=== PATIENT | female | born 1975 | race Caucasian/White ===

== ENCOUNTER 2023-12-09 08:12 | Day surgery (SDC) | payer BC, SELFPAY ==
[2023-12-09 08:28] VITALS: BP 127/105; PULSE 80; RESP 18; TEMP 36.2; O2SAT 99
--- NOTE | 2023-12-09 08:29 | ANES.PREANE2 ---
Pre-Anesthetic Assessment Height/Weight: Height 1.75 m Weight 79.832 kg Temp Pulse Resp BP Pulse Ox O2 Del Method 97.2 F L 80 18 127/105 99 Room Air 12/09/23 08:28 12/09/23 08:28 12/09/23 08:28 12/09/23 08:28 12/09/23 08:28 12/09/23 08:28 Operation Date: 12/09/23 09:30 Proposed Procedures p [id number] egd [id number] colonoscopy G0121 screen colon a risk K21.9,Z12.11(Not Applicable) - Roel Goodson DO s Colonoscopy(Not Applicable) - Roel Goodson DO Familial anesthetic complications: None Was Beta Lobo taken within 24 hours: N/A Was Clonidine taken within 24 hours: N/A Last intake: Intake Last Liquid Date 12/08/23 Last Liquid Time 20:00 Last Solid Date 12/07/23 Last Solid Time 18:00 Social No alcohol and No tobacco Exam alert, oriented x 3, clear to auscultation bilaterally and regular rate & rhythm Airway Mallampati: Class I Dentition: other (3 missing) GI Gastroesophageal Reflux Disease Anesthetic Plan ASA status: 2 Anesthesia: MAC Risk of > 500 ml blood loss (7ml/kg in children): No Medications/Allergies Home Medications Medication Instructions Recorded Confirmed Last Taken Type pantoprazole 40 mg tablet,delayed 40 mg PO BID 30 days #60 tabs 11/13/23 12/07/23 12/07/23 Rx release (Protonix) sucralfate 1 gram tablet 1 g PO TID PRN Abdominal Pain 11/13/23 12/07/23 12/07/23 History Allergies Allergy/AdvReac Type Severity Reaction Status Date / Time hydrocodone Allergy Mild ADR-Abdominal Verified 12/07/23 12:30 Pain PFSH Anesthesia Surgical History (Updated 11/13/23 @ 10:14 by Roel Goodson DO) Hx of knee surgery x5 right knee History of lumpectomy of right breast Hx of hysterectomy Family History Mother Cancer lung Father COPD (chronic obstructive pulmonary disease) Social History Smoking and tobacco/nicotine status: former use of tobacco/nicotine Data Anesthesia Cardiac Studies: No Data to Display
[2023-12-09] MEDS: sodium chloride 0.9% 1,000 ML 30 ML IV (08:36)
--- NOTE | 2023-12-09 09:12 | W.PM.OPSUD ---
Surgery/Procedure H&P Update DATE OF PROCEDURE: December 09, 2023 DATE H&P PERFORMED: 11/13/23 H&P UPDATE INFORMATION: I have reviewed H&P completed within last 30 days, I have examined patient prior to procedure and No changes to prior documentation PLANNED PROCEDURE: Operation Date: 12/09/23 09:30 Proposed Procedures p [id number] egd [id number] colonoscopy G0121 screen colon a risk K21.9,Z12.11(Not Applicable) - DO jose manuel Mcmanus Colonoscopy(Not Applicable) - Roel Goodson DO
[2023-12-09 09:40] VITALS: BP 110/81; PULSE 73; RESP 18; TEMP 36.8; O2SAT 98
[2023-12-09 09:54] VITALS: BP 133/98; PULSE 76; RESP 18; O2SAT 97
--- NOTE | 2023-12-09 10:10 | ANE.PACU2 ---
Inpatient post-anesthesia follow up: Airway intact: Yes Vital signs: Temperature 98.3 F Pulse Rate 76 Respiratory Rate 18 Blood Pressure 133/98 Pulse Oximetry 97 Oxygen Delivery Me thod Room Air Oxygen Flow Rate Fraction of Inspir ed Oxygen Hydration adequate: Yes Nausea and vomiting: No Pain level: 1 Mental status: Baseline
== END 2023-12-09 10:10 | disposition home or self-care (01) ==
PROVIDERS: PCP Nurse Practitioner Family; Visit Provider Surgery
PROC: 0DJ08ZZ Inspection of Upper Intestinal Tract, Via Natural or Artificial Opening Endoscopic (ICD-10-PCS; CPT 43235; principal; 2023-12-09 09:30)
PROC: 0DJD8ZZ Inspection of Lower Intestinal Tract, Via Natural or Artificial Opening Endoscopic (ICD-10-PCS; CPT 45378; 2023-12-09 09:30)
DX: Z12.11 Encounter for screening for malignant neoplasm of colon (principal); K21.9 Gastro-esophageal reflux disease without esophagitis; K57.30 Diverticulosis of large intestine without perforation or abscess without bleeding; Z87.891 Personal history of nicotine dependence
CPT/HCPCS: 43239; 45378; 88305; J2704; J7030

== ENCOUNTER 2023-12-18 07:27 | Outpatient (CLI) | payer BC, SELFPAY ==
--- NOTE | 2023-12-18 08:00 | NM_ITS ---
WS: [id number] NUCLEAR MEDICINE HIDA SCAN CLINICAL INFORMATION: RUQ pain TECHNIQUE: Following intravenous administration of 7.5 mCi of technetium 99m mebrofenin, images of th e abdomen were obtained over the course of 60 minutes. Next, gallbladder ejection fraction was determ ined by obtaining preprandial and one-hour postprandial images of the gallbladder following oral marvel stion of Ensure. COMPARISON: None. FINDINGS: Normal hepatic uptake at 5 minutes. Gallbladder is visualized by 20 minutes. No evidence of acute cho lecystitis. Normal common bile duct and small bowel activity. Normal hepatic excretion. Gallbladder ejection fraction 77% within normal limits. No evidence of chronic cholecystitis. IMPRESSION: 1. No evidence of acute or chronic cholecystitis. 2. Normal gallbladder ejection fraction 77%.
== END 2023-12-18 07:28 | disposition home or self-care (01) ==
PROVIDERS: PCP Nurse Practitioner Family; Visit Provider Surgery
DX: R10.11 Right upper quadrant pain (principal)
CPT/HCPCS: 78227; A9537

== ENCOUNTER → 2024-01-19 12:07 | Outpatient (BNVA) | payer BC, SELFPAY | PROVIDERS: PCP Nurse Practitioner Family; Referring Provider Nurse Practitioner Family; Visit Provider Internal Medicine Cardiovascular Disease | DX: R55 Syncope and collapse (principal); R07.9 Chest pain, unspecified; R01.1 Cardiac murmur, unspecified; R00.2 Palpitations | CPT/HCPCS: 93005 ==

== ENCOUNTER 2024-02-01 12:57 | Outpatient (CLI) | payer BC, SELFPAY ==
[2024-02-01 13:00] VITALS: BMI 25.1
--- NOTE | 2024-02-01 13:03 | ECG_ITS ---
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 Interpretive Statements NAME OF STUDY: TREADMILL STRESS TEST INDICATION: Chest Pain, PROCEDURE: At the baseline, the patient's blood pressure was 126/86 with a heart rate of 69. The baseline electrocardiogram showed normal sinus rhythm with some nonspecific ST changes in the inferolateral leads. The patient exercised for 8 minutes and 53 seconds on a standard Carlos protocol. Patient attained a maximum heart rate of 167 beats per minute(98% of the maximum predicted heart rate) with a blood pressure at the peak exercise of 187/95 mm Hg. The EKG at the peak exercise revealed no significant changes.. Patient did not have any chest pain or any significant cardiac arrhythmias with the exercise During the recovery phase, the EKG showed more prominent nonspecific ST changes in the inferolateral leads Blood pressure at the end of the recovery phase was 131/90 mm Hg with a heart rate of 88 per minute. CONCLUSION: 1. Nonspecific EKG changes with the treadmill exercise 2. No exercise-induced chest pain or cardiac arrhythmia 3. Fair exercise tolerance, attained a maximum of 10.2 METs Electronically Signed On 02-06-2024 12:23:03 CDT by Alex Roldan M.D. [email or web address]
--- NOTE | 2024-02-01 13:45 | USCV_ITS ---
Giulia Berman Age: 48 Gender: F : 1975 Exam Date: 02/01/2024 13:09 Ordering Phys: Alex Roldan MD ([email or web address]) Technologist: Exam Location: [facility] – [place], [place] Indication: murmur BP: 130 / 78 HR: 84 Rhythm: Sinus Technical Quality: Adequate MEASUREMENTS (Male / Female) Normal Values 2D ECHO LV Diastolic Diameter PLAX 5.0 cm 4.2 - 5.9 / 3.9 - 5.3 cm IVS Diastolic Thickness 1.1 cm 0.6 - 1.0 / 0.6 - 0.9 cm IVS Systolic Thickness 1.5 cm LVPW Diastolic Thickness 0.9 cm 0.6 - 1.0 / 0.6 - 0.9 cm LVPW Systolic Thickness 1.7 cm LVOT Diameter 2.0 cm LV Ejection Fraction 2D Teich 62.2 % LV Ejection Fraction MOD 2C 75.1 % LV Ejection Fraction 2C AL 76.5 % LA Diameter 2.7 cm RA Systolic Volume 4C AL 36.2 ml RA Systolic Volume 4C MOD 34.9 ml LA Sys Volume AL 66.9 cm cubed LA Sys Volume Index AL 34.5 cm cubed/m squared IVC Diameter 1.6 cm M-MODE LA Ao Ratio MM 1.1 AV Cusp Separation MM 1.9 cm DOPPLER AV Peak Velocity 139.0 cm/s LVOT Peak Velocity 89.0 cm/s AV Area Cont Eq vti 2.2 cm squared AV Area Cont Eq pk 2.1 cm squared MV Peak Velocity 106.0 cm/s MV Area PHT 3.0 cm squared Mitral E to A Ratio 1.2 TV Peak Velocity 182.5 cm/s TR Peak Velocity 211.0 cm/s TR Peak Gradient 17.8 mmHg TV Peak E Velocity 93.0 cm/s Right Atrial Pressure 3.0 mmHg Pulmonary Artery Systolic Pressu 20.8 mmHg PV Peak Velocity 98.0 cm/s FINDINGS Left Ventricle Normal left ventricular size and systolic function, EF 76%. No regional wall motion abnormalities. Right Ventricle The right ventricle is normal in size and function. Right Atrium The right atrium is normal in size. Left Atrium Possibly of normal size Mitral Valve Trace mitral valve regurgitation. Aortic Valve No gross abnormalities Tricuspid Valve Trace tricuspid valve regurgitation. Pulmonic Valve No gross abnormalities Pericardium Normal pericardium without effusion. Aorta Normal ascending aorta dimension. IVC The inferior vena cava appears normal. CONCLUSIONS Normal left ventricular size and systolic function, EF 76%. No regional wall motion abnormalities. Normal cardiac chamber sizes. Trace mitral valve regurgitation. Trace tricuspid valve regurgitation. Estimated pulmonary artery peak systolic pressure 21 mm Hg. There is no pericardial effusion. There are no intracardiac masses. No similar previous studies are available for comparison Dr Alex Roldan MD [facility] (Electronically Signed) Final Date: 01 Feb 2024 20:51 S
[2024-02-01 14:04] VITALS: BP 131/90; PULSE 89
== END 2024-02-01 12:58 | disposition home or self-care (01) ==
LOC: CDL 12:57
PROVIDERS: PCP Nurse Practitioner Family; Visit Provider Internal Medicine Cardiovascular Disease
DX: R07.9 Chest pain, unspecified (principal)
CPT/HCPCS: 93017; 93306

== ENCOUNTER 2024-09-01 05:44 | Day surgery (SDC) | payer BC, SELFPAY ==
[2024-09-01] VITALS (10 sets, daily range): BP systolic 121–151; BP diastolic 65–102; PULSE 48–74; RESP 17–18; TEMP 36.2–36.3; O2SAT 96–99
--- NOTE | 2024-09-01 06:28 | ANES.PREANE2 ---
Pre-Anesthetic Assessment Height/Weight: Height 5 ft 9 in Weight 5 lb 9 oz Temp Pulse Resp BP Pulse Ox O2 Del Method 97.2 F L 67 18 121/82 99 Room Air 09/01/24 06:16 09/01/24 06:16 09/01/24 06:16 09/01/24 06:16 09/01/24 06:16 09/01/24 06:17 Preop Diagnosis: Chronic cholecystitis Operation Date: 09/01/24 07:00 Proposed Procedures p Laparoscopic Cholecystectomy 63409, K82.8(Not Applicable) - Roel Goodson, DO Was Beta Lobo taken within 24 hours: N/A Was Clonidine taken within 24 hours: N/A Last intake: Intake Last Liquid Date 08/31/24 Last Liquid Time 22:40 Last Solid Date 08/31/24 Last Solid Time 19:30 Social No alcohol and No tobacco Quit smoking years ago Exam alert, oriented x 3, clear to auscultation bilaterally and regular rate & rhythm Airway Submandibular: within normal limits Cervical ROM: within normal limits Mallampati: Class II Dentition: full Anesthetic Plan ASA status: 2 Anesthesia: General Other: No prior issues with anesthesia NPO since yesterday History of hypertension on amlodipine. Preop BP 121/82 GERD Prior smoker, occasional inhaler use Previous echo demonstrating EF 72% with no wall motion abnormalities. Mild tricuspid regurg METs greater than 4 Plan for GETA Medications/Allergies Home Medications Medication Instructions Recorded Confirmed Last Taken Type sucralfate 1 gram tablet 1 g PO TID PRN Abdominal Pain 11/13/23 09/01/24 12/08/23 History albuterol sulfate 90 mcg/actuation 2 puff inhalation Q6H PRN 01/19/24 09/01/24 Unknown History aerosol inhaler (Ventolin HFA) Shortness Of Breath amlodipine 2.5 mg tablet 2.5 mg PO DAILY HTN 30 days #30 01/19/24 08/31/24 09/01/24 Rx tabs cyclobenzaprine 10 mg tablet 10 mg PO TID PRN Muscle Spasm 08/31/24 09/01/24 Unknown History Allergies Allergy/AdvReac Type Severity Reaction Status Date / Time hydrocodone Allergy Mild ADR-Abdominal Verified 08/31/24 08:25 Pain morphine Allergy Unknown Verified 08/31/24 08:36 [facility] Anesthesia Surgical History Hx of knee surgery x5 right knee History of lumpectomy of right breast Hx of hysterectomy Family History Mother Cancer lung Hyperlipidemia Hypertension Heart disease Father COPD (chronic obstructive pulmonary disease) Atrial fibrillation CAD (coronary artery disease) Congestive heart failure (CHF) Heart disease Hypertension Grandfather Aneurysm Denies family history of Diabetes Anemia Clotting disorder TIA (transient ischemic attack) Hyperthyroidism Hypothyroidism Sudden cardiac Chronic kidney disease (CKD) Congenital heart disease Pulmonary embolism Cardiomyopathy Stroke Social History Smoking and tobacco/nicotine status: former use of tobacco/nicotine Data Anesthesia Cardiac Studies: Echocardiogram 02/01/24 Cardiac Event Monitor 01/20/24
[2024-09-01] MEDS: sodium chloride 0.9% 1,000 ML 30 ML IV (06:43)
[2024-09-01] MEDS: scopolamine 1.5 Patch 1 PATCH TRANSDERMA (06:43)
[2024-09-01] MEDS: ceFAZolin 2,000 mg SDV 2000 MG IVP (07:00)
--- NOTE | 2024-09-01 07:01 | PM.HP ---
Providers/Chief Complaint Primary Care Provider: BOAZ Li Chief Complaint: K82.8 History of Present Illness Giulia Berman is a 48 year old female Review of Systems General: Reports: 10 or more systems reviewed and unremarkable except in HPI and below Medications/Allergies Home Medications Medication Instructions Recorded Confirmed Last Taken Type sucralfate 1 gram tablet 1 g PO TID PRN Abdominal Pain 11/13/23 09/01/24 12/08/23 History albuterol sulfate 90 mcg/actuation 2 puff inhalation Q6H PRN 01/19/24 09/01/24 Unknown History aerosol inhaler (Ventolin HFA) Shortness Of Breath amlodipine 2.5 mg tablet 2.5 mg PO DAILY HTN 30 days #30 01/19/24 08/31/24 09/01/24 Rx tabs cyclobenzaprine 10 mg tablet 10 mg PO TID PRN Muscle Spasm 08/31/24 09/01/24 Unknown History Allergies Allergy/AdvReac Type Severity Reaction Status Date / Time hydrocodone Allergy Mild ADR-Abdominal Verified 08/31/24 08:25 Pain morphine Allergy Unknown Verified 08/31/24 08:36 PFSH Acute PFSH: Surgical History Hx of knee surgery x5 right knee History of lumpectomy of right breast Hx of hysterectomy Family History Mother Cancer lung Hyperlipidemia Hypertension Heart disease Father COPD (chronic obstructive pulmonary disease) Atrial fibrillation CAD (coronary artery disease) Congestive heart failure (CHF) Heart disease Hypertension Grandfather Aneurysm Denies family history of Diabetes Anemia Clotting disorder TIA (transient ischemic attack) Hyperthyroidism Hypothyroidism Sudden cardiac Chronic kidney disease (CKD) Congenital heart disease Pulmonary embolism Cardiomyopathy Stroke Social History Smoking and tobacco/nicotine status: former use of tobacco/nicotine Vitals/I&O/Wt Last Vital Signs Temp 97.2 F L 09/01/24 06:16 Pulse 67 09/01/24 06:16 Resp 18 09/01/24 06:16 BP 121/82 09/01/24 06:16 Pulse Ox 99 09/01/24 06:16 O2 Del Method Room Air 09/01/24 06:17 Weight last 48 hrs Weight 5 lb 9 oz A&P Assessment and plan (1) Biliary dyskinesia: Plan Laparoscopic cholecystectomy The risks and benefits of the procedure, including but not limited to, bleeding, infection, scar, numbness, pain, damage to surrounding structures, damage to common bile duct requiring additional surgery, conversion to an open procedure, possibility that cholecystectomy does not relieve all of her symptoms, were explained to the patient. She is understanding of the risks and wishes to proceed. Attestations Medical Necessity Statement*: home Coding Level of Care Code Acute Code for Chg Fwd Diagnoses Biliary dyskinesia K82.8
[2024-09-01] MEDS: lidocaine-epi 2% PF 1:200,000 20 mL SDV XX (07:18)
--- NOTE | 2024-09-01 07:31 | P.OP_ITS ---
Operative Report Date of procedure: September 01, 2024 Surgeon: Roel Goodson DO Brief History: This is a very pleasant 78-year-old female came to my office with abdominal pain. She was diagnosed with biliary dyskinesia. Laparoscopic cholecystectomy was indicated. The risks and benefits were explained and documented. Procedure: Preoperative diagnosis: Biliary dyskinesia Postoperative diagnosis: Same Procedure performed: Laparoscopic cholecystectomy Surgeon: Dr. Roel Goodson DO Estimated blood loss: 5 mL Specimens: Gallbladder to pathology Complications: None apparent Description of procedure: Patient was wheeled into the operative room and placed on the OR table in a supine position. Abdomen was inspected prepped and draped in usual sterile fashion. Time-out was performed and all present were in agreement. A 15 blade scalp was used to make a stab incision in the left upper quadrant and intra- abdominal insufflation was achieved using a Veress needle. After localizing the tissue incisions were made and a 5 millimeter trocar was placed into the umbilicus as well as 2 in the right upper quadrant. A 12 millimeter trocar was placed in the epigastrium. Gallbladder was grasped and elevated. The triangle of Calot was carefully dissected using blunt dissection and electrocautery until the triangle of Calot clearly identified. The cystic duct was clipped proximally and double clipped distally. The duct was then ligated proximally. The cystic artery was doubly clipped and ligated. The gallbladder was then removed from the liver bed using electrocautery. The gallbladder was removed from the abdomen using an Endo-Catch bag through the epigastric incision. The liver bed was inspected and no bleeding was seen. The abdomen was irrigated and suctioned. All ports removed. Skin was washed and dried. Incisions were closed with 4-0 Monocryl in a subcuticular interrupted fashion. Skin glue was applied. Patient tolerated the procedure well.
[2024-09-01] MEDS: ondansetron 2 mg/ML SDV 2 mL 4 MG IVP (07:55)
--- NOTE | 2024-09-01 09:00 | ANE.PACU2 ---
Inpatient post-anesthesia follow up: Airway intact: Yes Vital signs: Temperature 97.3 F Pulse Rate 56 Respiratory Rate 18 Blood Pressure 143/89 Pulse Oximetry 98 Oxygen Delivery Me thod Room Air Oxygen Flow Rate Fraction of Inspir ed Oxygen Hydration adequate: Yes Nausea and vomiting: No Pain level: 1 Mental status: Baseline
== END 2024-09-01 09:00 | disposition home or self-care (01) ==
PROVIDERS: PCP Nurse Practitioner Family; Visit Provider Surgery
PROC: 0FT44ZZ Resection of Gallbladder, Percutaneous Endoscopic Approach (ICD-10-PCS; CPT 47562; principal; 2024-09-01 07:00)
DX: K81.1 Chronic cholecystitis (principal); Z87.891 Personal history of nicotine dependence; I10 Essential (primary) hypertension; K21.9 Gastro-esophageal reflux disease without esophagitis
CPT/HCPCS: 47562; 88304; A4216; J0690; J1100; J2250; J2405; J2704; J2710; J3010; J3490; J7030